=== PATIENT | male | born 1990 | race Caucasian/White ===

== ENCOUNTER 2020-02-05 10:17 | Emergency (ER) | payer BC ==
--- NOTE | 2020-02-05 11:47 | EDM.PDOC ---
ED HPI GENERAL MEDICAL PROBLEM - General Chief Complaint: Respiratory Problem Time Seen by Provider: 02/05/20 11:46 - History of Present Illness INITIAL COMMENTS - FREE TEXT/NARRATIVE: 29 yo with a dry cough x 2 days. Also has myalgias,coryza and sore throat. He is a smoker. No contact with any patient with or suspected with COVID.He himself had it 3 months ago. generalized bodyaches Pain Score (Numeric/FACES): 3 - Related Data Allergies Allergy/AdvReac Type Severity Reaction Status Date / Time No Known Allergies Allergy Verified 04/18/14 16:13 Home Meds: Home Meds Acetaminophen [Tylenol Extra Strength] 1,000 mg Q6H PRN 04/18/14 [History] Ibuprofen 400 mg PO ASDIRECTED PRN 04/18/14 [History] Azithromycin 500 mg PO DAILY #3 tablet 02/05/20 [Rx] Benzonatate [Tessalon Perle] 100 mg PO TID #15 capsule 02/05/20 [Rx] Past Medical History Respiratory History: Reports: Other (See Below) Other Respiratory History: COVID-19 3 months ago. Psychiatric History: Reports: Anxiety, Depression Social & Family History - Family History Family Medical History: Noncontributory - Tobacco Use Smoking Status *Q: Current Every Day Smoker Years of Tobacco use: 7 Packs/Tins Daily: 0.5 - Caffeine Use Caffeine Use: Reports: Soda - Recreational Drug Use Recreational Drug Use: No ED ROS GENERAL - Review of Systems Review Of Systems: Comprehensive ROS is negative, except as noted in HPI. ED EXAM, GENERAL - Physical Exam Exam: See Below Exam Limited By: No Limitations General Appearance: Alert, WD/WN Ear Exam: Bilateral Ear: Auricle Normal, Canal Normal, TM normal Nose: Normal Inspection Respiratory/Chest: No Respiratory Distress Cardiovascular: Normal Peripheral Pulses Course - Vital Signs Last Recorded V/S: Last Vital Signs Temp 98.3 F 02/05/20 11:50 Pulse 82 02/05/20 11:50 Resp 19 02/05/20 11:50 BP 123/71 02/05/20 11:50 Pulse Ox 98 02/05/20 11:50 - Orders/Labs/Meds Orders: Active Orders 24 hr Category Date Time Status CULTURE STREP A CONFIRMATION [RM] Stat Lab 02/05/20 10:29 Results STREP SCRN A RAPID W CULT CONF [RM] Stat Lab 02/05/20 10:29 Results Labs: Laboratory Tests 02/05/20 Range/Units 10:29 SARS Virus RNA (PCR) Negative (NEGATIVE) Departure - Departure Time of Disposition: 11:47 Disposition: Home, Self-Care 01 Condition: Good Clinical Impression: RTI (respiratory tract infection) - Discharge Information Prescriptions: Azithromycin 500 mg PO DAILY #3 tablet Benzonatate [Tessalon Perle] 100 mg PO TID #15 capsule Instructions: Acute Bronchitis, Adult Referrals: PCP,None [Primary Care Provider] - Forms: ED Department Discharge Additional Instructions: May take Tylenol 1000mg and Ibuprofen 600mg for pain and discomfort. Take the medication prescribed as directed. Follow up with your primary care provider as needed. May call for questions or come back if your symptoms worsen or any concerning signs and symptoms. Sepsis Event Note (ED) - Evaluation Sepsis Screening Result: No Definite Risk - Focused Exam Vital Signs: Vital Signs Temp Pulse Resp BP Pulse Ox 02/05/20 11:50 98.3 F 82 19 123/71 98 02/05/20 10:20 98.5 F 93 17 142/85 H 98 - Problem List & Annotations (1) RTI (respiratory tract infection) SNOMED Code(s): 473923821 Code(s): J98.8 - OTHER SPECIFIED RESPIRATORY DISORDERS Status: Acute - Problem List Review Problem List Initiated/Reviewed/Updated: Yes - My Orders Last 24 Hours: My Active Orders 02/05/20 10:29 CULTURE STREP A CONFIRMATION [RM] Stat STREP SCRN A RAPID W CULT CONF [RM] Stat - Assessment/Plan Last 24 Hours: My Active Orders 02/05/20 10:29 CULTURE STREP A CONFIRMATION [RM] Stat STREP SCRN A RAPID W CULT CONF [RM] Stat Plan: Sent home with Karma and Jaciel Sandoval. Follow up on Friday. Strep and COCID NAAT neg
[2020-02-05 12:02] VITALS: BP 123/71; PULSE 82
== END 2020-02-05 11:55 | disposition home or self-care (01) ==
LOC: FB.ED 10:17
DX: J98.8 Other specified respiratory disorders (principal); F17.210 Nicotine dependence, cigarettes, uncomplicated; Z09 Encounter for follow-up examination after completed treatment for conditions other than malignant neoplasm; Z86.19 Personal history of other infectious and parasitic diseases
CPT/HCPCS: 87081; 87880-QW; 99283; U0002

== ENCOUNTER 2022-03-21 00:43 | Emergency (ER) | payer MEDICAID ==
[2022-03-21] MEDS ORDERED: Ondansetron 4 MG Tab.DIS PO ONE (00:44)
[2022-03-21] MEDS ORDERED: Sodium Chloride 0.9% 10 ML Syringe FLUSH PRN (00:53)
[2022-03-21] MEDS ORDERED: Prochlorperazine 10 MG/2 ML SDV IVPUSH ONE (00:53)
[2022-03-21] MEDS ORDERED: Sodium Chloride 0.9% 1,000 ML IV SCH (01:00)
[2022-03-21 01:22] LABS: ESTIMATED GFR 93 mL/min (>60)
[2022-03-21 02:44] VITALS: BP 118/76; PULSE 76
== END 2022-03-21 02:20 | disposition home or self-care (01) ==
LOC: FB.ED 00:43
DX: A08.4 Viral intestinal infection, unspecified (principal); E86.0 Dehydration; F17.210 Nicotine dependence, cigarettes, uncomplicated; Z79.899 Other long term (current) drug therapy; Z90.49 Acquired absence of other specified parts of digestive tract
CPT/HCPCS: 36415; 80048; 80307; 85025; 96361; 96374; 99284; J0780; J7030; Q0162

== ENCOUNTER 2022-08-02 22:46 | Emergency (ER) | payer MEDICAID ==
[2022-08-03 00:19] VITALS: BP 138/69; PULSE 76
== END 2022-08-03 00:13 ==
LOC: FB.ED 22:46
DX: S39.840A Fracture of corpus cavernosum penis, initial encounter (principal); F17.210 Nicotine dependence, cigarettes, uncomplicated; Z86.16 Personal history of COVID-19; X50.1XXA Overexertion from prolonged static or awkward postures, initial encounter
CPT/HCPCS: 81001; 99284; 99285

== ENCOUNTER 2023-05-10 23:25 | Emergency (ER) | payer MEDICAID ==
[2023-05-11 00:18] LABS: BASOPHILS PERCENT AUTO 0.4 % (0.3-3.8); EOSINOPHILS ABSOLUTE AUTO 0.2 x10-3/uL (0.0-0.6); EOSINOPHILS PERCENT AUTO 1.5 % (0.1-6.8); HEMATOCRIT 45.3 % (38.3-50.1); HEMOGLOBIN 15.9 g/dL (12.9-17.7); LYMPHOCYTES ABSOLUTE AUTO 1.9 x10-3/uL (0.5-4.5); LYMPHOCYTES PERCENT AUTO 16.3 % (15.8-45.3); MEAN CORPUSCULAR HEMOGLOBIN 31.9 pg (27.0-33.3); MEAN CORPUSCULAR HGB CONC 35.1 g/dL (28.7-35.3); MEAN PLATELET VOLUME 8.2 fL (6.7-11.0); MONOCYTES PERCENT AUTO 8.7 % (5.5-15.2); NEUTROPHILS ABSOLUTE AUTO 8.5 x10-3/uL (1.7-6.9); NEUTROPHILS PERCENT AUTO 73.1 % (40.3-71.8); PLATELET COUNT,PLT 335 x10(3)uL (117-477); RED BLOOD CELL COUNT 4.98 x10(6)uL (3.90-5.90); RED CELL DISTRIBUTION WIDTH 13.6 % (12.4-15.0); WHITE BLOOD CELL COUNT,WBC 11.6 x10-3/uL (3.2-10.1)
[2023-05-11] MEDS ORDERED: Iopamidol 755 Mg/ML 100 ML Bottle IV ONE (00:23)
[2023-05-11 00:31] LABS: INR 0.91 (1.00-1.24); PROTHROMBIN TIME 9.4 sec (9.0-11.1); PTT,PARTIAL THROMBOPLSTIN TIME 22.6 SECONDS (24.4-33.2)
[2023-05-11] MEDS ORDERED: Morphine 4 MG/ML VIAL IVPUSH ONE (00:50)
[2023-05-11 01:08] LABS: AMPHETAMINES SCREEN, URINE NEGATIVE (NEGATIVE); BENZODIAZEPINES SCREEN,URINE NEGATIVE (NEGATIVE); METHADONE SCREEN, URINE NEGATIVE (NEGATIVE); METHAMPHETAMINE SCREEN, URINE NEGATIVE (NEGATIVE); THC SCREEN,URINE POSITIVE (NEGATIVE)
[2023-05-11 01:09] LABS: BARBITURATE SCREEN,URINE NEGATIVE (NEGATIVE); BUPRENORPHINE SCREEN,URINE NEGATIVE (NEGATIVE); OXYCODONE SCREEN,URINE NEGATIVE (NEGATIVE)
[2023-05-11 19:47] VITALS: BP 120/85; PULSE 90
== END 2023-05-11 02:16 | disposition home or self-care (01) ==
LOC: FB.ED 23:25
DX: S32.048A Other fracture of fourth lumbar vertebra, initial encounter for closed fracture (principal); F10.129 Alcohol abuse with intoxication, unspecified; F17.210 Nicotine dependence, cigarettes, uncomplicated; Z86.16 Personal history of COVID-19; Y90.7 Blood alcohol level of 200-239 mg/100 ml; Y04.2XXA Assault by strike against or bumped into by another person, initial encounter
CPT/HCPCS: 36415; 70450; 70486; 71101-LT; 72125; 73140-F2; 74177; 80307; 85025; 85610; 85730; 96374; 99284-25; J2270; Q9967

== ENCOUNTER 2023-11-04 18:08 | Emergency (ER) | payer MEDICAID, OTHER ==
[2023-11-04] MEDS ORDERED: Propofol 200 MG/20 ML SDV IV ONE (18:09)
[2023-11-04] MEDS ORDERED: Midazolam 1 MG/ML 2 ML SDV IV ONE (18:09)
[2023-11-04] MEDS ORDERED: fentaNYL 100 MCG/2 ML SDV IV ONE (18:09)
[2023-11-04] MEDS ORDERED: Rocuronium 100 MG/10 ML MDV IV ONE (18:09)
[2023-11-04 18:24] LABS: BASOPHILS ABSOLUTE AUTO 0.1 x10-3/uL (0.0-0.3); BASOPHILS PERCENT AUTO 0.7 % (0.3-3.8); EOSINOPHILS ABSOLUTE AUTO 0.5 x10-3/uL (0.0-0.6); EOSINOPHILS PERCENT AUTO 4.3 % (0.1-6.8); HEMATOCRIT 43.8 % (38.3-50.1); HEMOGLOBIN 15.1 g/dL (12.9-17.7); LYMPHOCYTES ABSOLUTE AUTO 3.7 x10-3/uL (0.5-4.5); LYMPHOCYTES PERCENT AUTO 34.3 % (15.8-45.3); MEAN CORPUSCULAR HEMOGLOBIN 31.6 pg (27.0-33.3); MEAN CORPUSCULAR HGB CONC 34.4 g/dL (28.7-35.3); MEAN CORPUSCULAR VOLUME 91.9 fL (80.8-98.7); MEAN PLATELET VOLUME 8.6 fL (6.7-11.0); MONOCYTES ABSOLUTE AUTO 1.2 x10-3/uL (0.0-1.2); MONOCYTES PERCENT AUTO 11.3 % (5.5-15.2); NEUTROPHILS ABSOLUTE AUTO 5.4 x10-3/uL (1.7-6.9); NEUTROPHILS PERCENT AUTO 49.4 % (40.3-71.8); PLATELET COUNT,PLT 341 x10(3)uL (117-477); RED BLOOD CELL COUNT 4.77 x10(6)uL (3.90-5.90); RED CELL DISTRIBUTION WIDTH 13.2 % (12.4-15.0); WHITE BLOOD CELL COUNT,WBC 10.9 x10-3/uL (3.2-10.1)
[2023-11-04 18:26] LABS: BLOOD UREA NITROGEN,BUN 16 mg/dL (7-18); CALCIUM 9.3 mg/dL (8.6-10.2); CARBON DIOXIDE,CO2 27 mmol/L (21-32); CHLORIDE,CL 104 mmol/L (100-110); CREATININE 0.8 mg/dL (0.70-1.30); ESTIMATED GFR 122 mL/min (>60); GLUCOSE RANDOM 99 mg/dL (80-116); POTASSIUM,K 3.2 mmol/L (3.5-5.3); SODIUM,NA 143 mmol/L (135-145)
[2023-11-04 18:29] LABS: INR 0.92 (1.00-1.24); PROTHROMBIN TIME 9.7 sec (9.0-11.1)
[2023-11-04 18:32] LABS: A/G RATIO 1.3; ALANINE AMINOTRANSFERASE,ALT 24 U/L (12-36); ALBUMIN 4.1 g/dL (3.5-5.2); ALKALINE PHOSPHATASE 60 IU/L (56-112); ASPARTATE AMNIOTRANSFERASE,AST 23 IU/L (5-25); BILIRUBIN TOTAL 0.9 mg/dL (0.1-1.3); MAGNESIUM 1.4 mg/dL (1.8-2.5); PROTEIN TOTAL,TP 7.2 g/dL (6.0-8.0)
[2023-11-04 18:43] LABS: BILIRUBIN,URINE NEGATIVE (NEGATIVE); GLUCOSE,URINE NORMAL (NORMAL); KETONES,URINE 15 mg/dL (NEGATIVE); LEUKOCYTE ESTERASE,URINE NEGATIVE (NEGATIVE); NITRITE,URINE NEGATIVE (NEGATIVE); OCCULT BLOOD,URINE NEGATIVE (NEGATIVE); PROTEIN,URINE NEGATIVE (NEGATIVE); UROBILINOGEN,URINE NORMAL (NEGATIVE)
[2023-11-04 18:47] LABS: APPEARANCE,URINE CLEAR (CLEAR); BACTERIA,URINE RARE (NS); COLOR,URINE YELLOW (YELLOW); RBC,URINE 0-5 (0-5); SQUAMOUS EPITHELIAL CELLS,UR FEW (NS,R,O); WBC,URINE 0-5 (0-5)
[2023-11-04 18:51] LABS: AMPHETAMINES SCREEN, URINE NEGATIVE (NEGATIVE); BARBITURATE SCREEN,URINE NEGATIVE (NEGATIVE); BENZODIAZEPINES SCREEN,URINE NEGATIVE (NEGATIVE); BUPRENORPHINE SCREEN,URINE NEGATIVE (NEGATIVE); METHADONE SCREEN, URINE NEGATIVE (NEGATIVE); METHAMPHETAMINE SCREEN, URINE NEGATIVE (NEGATIVE); OXYCODONE SCREEN,URINE NEGATIVE (NEGATIVE); THC SCREEN,URINE POSITIVE (NEGATIVE)
[2023-11-04] MEDS: Iopamidol 755 Mg/ML 100 ML Bottle IV SCH (19:24)
[2023-11-05] MEDS: Magnesium Sulfate/Water 2 GM in Premix Bag 1 BAG IV ONE (08:04)
[2023-11-05] MEDS: Potassium Chloride 10 MEQ in Premix Bag 1 BAG IV ONE (08:04)
== END 2023-11-04 19:50 ==
LOC: FB.ED 18:08
DX: S06.0X0A Concussion without loss of consciousness, initial encounter (principal); S01.21XA Laceration without foreign body of nose, initial encounter; S01.01XA Laceration without foreign body of scalp, initial encounter; E86.0 Dehydration; R82.4 Acetonuria; E87.6 Hypokalemia; E83.42 Hypomagnesemia; F12.90 Cannabis use, unspecified, uncomplicated; Z79.899 Other long term (current) drug therapy; Z86.16 Personal history of COVID-19; W20.8XXA Other cause of strike by thrown, projected or falling object, initial encounter
CPT/HCPCS: 70450; 70486; 71260; 72125; 74177; 80053; 80307; 81001; 83735; 85025; 85610; 99284; J2250; J2704; J3010; Q9967